=== PATIENT | female | born 1975 | race Caucasian/White ===

== ENCOUNTER → 2022-04-26 | Outpatient (CLI) | payer OTHER | LOC: EXRD 11:55 | DX: E03.9 Hypothyroidism, unspecified (principal) | CPT/HCPCS: 76536 ==

== ENCOUNTER 2022-04-30 09:25 | Emergency (ER) | payer OTHER ==
[2022-04-30 10:07] LABS: HEMOGLOBIN 12.4 gm/dl (12.3-15.3); RED BLOOD COUNT 4.15 M/UL (4.00-5.10)
[2022-04-30 10:31] LABS: BUN/CREATININE RATIO 30 (0-10)
[2022-04-30] MEDS ORDERED: HYDROCODON-ACE1 EAC4 PO (13:01)
== END 2022-04-30 13:33 | disposition home or self-care (01) ==
LOC: ER1 09:25
PROVIDERS: Physician Assistant Medical
DX: N13.2 Hydronephrosis with renal and ureteral calculous obstruction (principal); M06.9 Rheumatoid arthritis, unspecified; Z90.89 Acquired absence of other organs; Z90.49 Acquired absence of other specified parts of digestive tract; Z90.710 Acquired absence of both cervix and uterus; Z98.84 Bariatric surgery status; Z88.2 Allergy status to sulfonamides; Z88.5 Allergy status to narcotic agent; Z88.8 Allergy status to other drugs, medicaments and biological substances
CPT/HCPCS: 80053; 81001; 83605; 83690; 85025; 93005; 96374; 96375; 96376; 99284; J2270; J2405

== ENCOUNTER → 2022-04-30 | Emergency (ER) | payer OTHER ==
[~2022-04-30] MED LIST: HYDROCODON-ACE1 EAC4 PO
== END | disposition left against medical advice (07) ==
LOC: ER1 22:59
DX: Z53.21 Procedure and treatment not carried out due to patient leaving prior to being seen by health care provider (principal)

== ENCOUNTER 2022-06-12 16:53 | Emergency (ER) | payer OTHER ==
[2022-06-12 18:48] LABS: HEMOGLOBIN 13.2 gm/dl (12.3-15.3); RED BLOOD COUNT 4.43 M/UL (4.00-5.10); WHITE BLOOD COUNT 6.9 K/UL (4.5-11.0)
[2022-06-12 19:13] LABS: BUN/CREATININE RATIO 27 (0-10)
== END 2022-06-12 20:33 | disposition home or self-care (01) ==
LOC: ER1 16:53
PROVIDERS: Physician Assistant
DX: H53.8 Other visual disturbances (principal); Z20.822 Contact with and (suspected) exposure to COVID-19
CPT/HCPCS: 70450; 71045; 80053; 81001; 82550; 82553; 83605; 84484; 85025; 85652; 86140; 93005; 96374; 99284; J2765; U0002